=== PATIENT | male | born 1985 | race Caucasian/White ===

== ENCOUNTER 2025-04-21 16:43 | Emergency (ER) | payer OTHER, SELFPAY ==
[2025-04-21 17:02] VITALS: BP 140/80; BP 143/83; PULSE 112; RESP 16; TEMP 37.1; O2SAT 95; O2SAT 96; BMI 33.2
--- NOTE | 2025-04-21 17:10 | PC.NURSE ---
Patient presents from home via EMS with SI with a plan to overdose on his medication. Anniversary of mom's (2019). Patient started with VH 4 days ago and AH 2 days ago. PMH: ADD/ADHD, cluster B personality disorder, MDD, anxiety and PTSD. Patient states went to [facility] to admit self and they informed him that would have a bed for him tomorrow. Alert and oriented, cooperative with care. Lungs clear bilat. Respirations even and non-labored. Abdomen soft, non-tender with positive bowel sounds. Positive pedal pulses with no edema. Pending care team eval.
--- NOTE | 2025-04-21 17:37 | ED_ITS ---
HPI - Psych General Chief Complaint: Psychiatric Symptoms Stated Complaint: SI w/ plan, auditory hallucinations Time Seen by Provider: 04/21/25 16:47 Source: patient and EMS Mode of arrival: EMS Limitations: no limitations History of Present Illness ED Provider: Dr. Niesha Ortiz HPI Narrative: Patient comes to the emergency room via ambulance complaining of suicidal ideation, plan to overdose, auditory hallucinations. Patient states that earlier today he went in to [facility], tried to checked himself in. They told him that they had no beds today but tomorrow they will have a bed available for him. In the meantime, they called EMS to bring him to the emergency room. Patient denies HI. Patient states that today is the anniversary of his mother's which is a trigger for him. Patient states that he did not hurt himself in any way before coming to the emergency room. Related Data Home Medications ?Medication ?Instructions ?Recorded ?Confirmed cholecalciferol (vitamin D3) 10 20 mcg PO DAILY 04/21/25 04/21/25 mcg (400 unit) tablet (Vitamin D3) dextroamphetamine-amphetamine ER 1 cap PO DAILY@1300 04/21/25 04/21/25 20 mg 24hr capsule,extend release (Adderall XR) diazepam 10 mg tablet 10 mg PO BID PRN Anxiety 04/21/25 04/21/25 fluticasone propionate 50 50 mcg intranasal DAILY 04/21/25 04/21/25 mcg/actuation nasal spray,suspension lisdexamfetamine 30 mg capsule 30 mg PO DAILY 04/21/25 04/21/25 (Vyvanse) lithium carbonate 300 mg 1,500 mg PO BEDTIME 04/21/25 04/21/25 tablet,extended release loratadine 10 mg tablet 10 mg PO DAILY 04/21/25 04/21/25 melatonin 3 mg tablet 9 mg PO BEDTIME 04/21/25 04/21/25 mirtazapine 30 mg tablet 30 mg PO BEDTIME 04/21/25 04/21/25 olanzapine 20 mg tablet 20 mg PO BEDTIME 04/21/25 04/21/25 olanzapine 5 mg tablet 5 mg PO DAILY 04/21/25 04/21/25 prazosin 1 mg capsule 1 mg PO DAILY 04/21/25 04/21/25 prazosin 2 mg capsule 2 mg PO BEDTIME 04/21/25 04/21/25 Allergies Allergy/AdvReac Type Severity Reaction Status Date / Time Penicillins [PENICILLINS] Allergy Unknown RASH,HIVES Verified 04/21/25 17:04 Review of Systems 2 Review of Systems: Constitutional : No Weight loss, No Fever, No Chills, No Night Sweats, No Fatigue, No Malaise ENT/Mouth : No Hearing loss, No Ear Pain, No Nasal Congestion, No Sinus Pain, No Hoarseness, No sore throat, No Rhinorrhea, No Swallowing Difficulty Eyes: No Eye Pain, No Swelling, No Redness, No Foreign Body, No Discharge, No Vision Changes Cardiovascular : No Chest Pain, No SOB, No Dyspnea on Exertion, No Orthopnea, No Edema, No Palpitations Respiratory : No Cough, No Sputum, No Wheezing, No Smoke Exposure, No Dyspnea Gastrointestinal : No Nausea, No Vomiting, No Diarrhea, No Constipation, No abdominal Pain, No Hematochezia, No Melena Genitourinary : no irregular bleeding, No Dysuria, No Urinary Frequency, No Hematuria, No Urinary Incontinence, No Urgency, No Flank Pain, No Urinary Flow Changes, No Hesitancy Musculoskeletal : No joint pain, No Myalgias, No Joint Swelling Skin : No Skin Lesions, No rash Neuro : No Weakness, No Numbness, No Paresthesias, No Loss of Consciousness, No Dizziness, No Headache Psych : Complaining of anxiety, suicidal ideation, auditory and visual hallucinations, triggered by his mother's anniversary Heme/Lymph: No Bruising, No Bleeding,No Lymphadenopathy Endocrine : No Polyuria, No Polydipsia, No Temperature Intolerance PMFSH Social History Social History Alcohol intake: former Smoked in Last 30 Days: No Use of substances other than those prescribed or required for medical reasons: No Advance Directives: No Advance Directives Information Provided: No Physical Exam 2 Vital Signs: Vital Signs: Last Vital Signs Temp 98.8 F 04/21/25 17:02 Pulse 98 04/21/25 22:39 Resp 16 04/21/25 22:39 BP 122/71 04/21/25 22:39 Pulse Ox 96 04/21/25 17:02 O2 Del Method Room Air 04/21/25 17:02 BMI result Body Mass Index 33.2 Const: Other: Appearance: Alert. Oriented X3. No acute distress. Eyes: Pupils equal, round and reactive to light. ENT: Pharynx normal. Neck: Normal inspection. Neck supple. No lymph nodes noted. No crepitus CVS: Normal heart rate and rhythm. Pulses normal. Normal S1 and S2 Respiratory: No respiratory distress. Breath sounds normal. No Wheezing. No rales Abdomen: Soft and nontender. No rigidity. No distention. Skin: Skin warm and dry. Normal skin color. Normal skin turgor. Extremities: No lower extremity edema. No Lacerations. No Rash Neuro: Oriented X 3. No motor deficit. No sensory deficit. Moving all extremities. No slurred speech. CN 2 through 12 grossly intact Psych: calm, cooperative, normal affect, coherent, normal speech Course Course Course Narrative: all of patient's labs pending patient is on a Section 12 care team consult pending according to the patient, he arranged at [facility] to get a bed tomorrow morning Reevaluation(s) Reevaluation #1: Time: 06:40 Date: 04/22/25 Provider: Ammon Dietz MD Patient in physician observation for psychiatric evaluation.? No acute events reported overnight. No current complaints. VS stable.? Patient is in bed search status. Will continue to monitor. My independent interpretation patient's laboratory evaluation is as follows: CBC with no significant abnormalities. CMP was normal. Urinalysis was normal. Drug screen urine positive for amphetamines and benzodiazepines. Ethanol was below detectable limits. Time: 08:00 Date: 04/22/25 Provider: Ammon Dietz MD Physician observation ended at 08:00. I did speak to the care team counselor and obtained the following information. The patient is not actively suicidal or homicidal. The patient states that he has a bed at [facility] and he is going to walk to [facility] for evaluation by their intake team. The patien was given verbal and printed discharge with printed. Medications Administered Generic Name Dose Route Start Last Admin Trade Name Freq PRN Reason Stop Dose Admin [place] Carbonate 1,500 mg 04/21/25 22:30 04/21/25 22:36 [place] Carbonate Er 300 Mg Tablet.Er PO 1,500 mg BEDTIME EFREM Administration Melatonin 9 mg 04/21/25 22:30 04/21/25 22:36 Melatonin 3 Mg Tablet PO 9 mg BEDTIME EFREM Administration Mirtazapine 30 mg 04/21/25 22:30 04/21/25 22:36 Mirtazapine 30 Mg Tablet PO 30 mg BEDTIME EFREM Administration Olanzapine 20 mg 04/21/25 22:30 04/21/25 22:36 Olanzapine 10 Mg Tablet PO 20 mg BEDTIME EFREM Administration Prazosin HCl 2 mg 04/21/25 22:30 04/21/25 22:36 Prazosin Hcl 1 Mg Capsule PO 2 mg BEDTIME EFREM Administration Protocol Discontinued Medications Generic Name Dose Route Start Last Admin Trade Name Sita PRN Reason Stop Dose Admin Lorazepam 2 mg 04/21/25 17:46 04/21/25 17:58 Lorazepam 1 Mg Tablet PO 04/21/25 17:47 2 mg ONCE ONE Administration Medical Decision Making Medical Decision Making [facility] Narrative: my interpretation of labs: Patient's white blood cell count 10.9, no source of infection. abnormality in patient's chemistry, urinalysis negative for UTI, urine toxicology positive f or amphetamines and benzodiazepine. The care team evaluated the patient. Patient was recently 30 days and [facility], then in respite, discharged today. Patient is homeless, now presents to the ED stating that he wants to go back to [facility]. Patient states that he was told by [facility] that there is a bed available for him tomorrow in the morning. The care team called [facility], this is not accurate. There is no bed available for the patient. However, the care team evaluated the patient, they believe that the patient is malingering because he is homeless. patient denied SI to the care team. Plan: Discharged 07:00, 04/22/2025 Differential Diagnosis Differential Diagnoses: The differential diagnosis associated with the presentation includes ( polysubstance abuse, bipolar disorder, schizophrenia) Admission/Observation Consideration of admission/observation: Escalation of care including admission/observation considered ( patient is under a section 12 waiting to be seen by the care team, patient may be transferred to [facility] tomorrow) Lab Data [facility] Lab Attestation statement: I reviewed the patient's lab results. 04/21/25 18:07 04/21/25 18:07 Labs: Lab Results 04/21/25 Range/Units 18:07 WBC 10.9 H (4.8-10.8) X10*3/uL RBC 4.31 L (4.60-5.80) X10*6/uL Hgb 13.5 L (14.0-18.0) g/dl Hct 40.7 L (42.0-52.0) % MCV 94.4 (80.0-98.0) fL MCH 31.3 (27.0-33.0) pg MCHC 33.2 (31.0-36.0) g/dl RDW 13.5 (11.0-16.0) % Plt Count 259 (160-400) X10*3/uL MPV 10.4 (9.4-12.4) fL Immature Gran % (Auto) 0.4 (0.0-0.4) % Neut % (Auto) 70.5 (45-73) % Lymph % (Auto) 15.2 L (20-40) % [place] % (Auto) 10.0 (2-11) % Eos % (Auto) 3.4 (0-4) % Baso % (Auto) 0.5 (0-2) % Lymph # (Auto) 1.7 (1.2-4.9) X10*3/uL [place] # (Auto) 1.1 (0.1-1.2) X10*3/uL Eos # (Auto) 0.4 (0.0-0.4) X10*3/uL Baso # (Auto) 0.1 (0.0-0.2) X10*3/uL Abs Immat Gran (auto) 0.04 H (0.00-0.03) X10*3/uL Absolute Neuts (auto) 7.7 (2.0-8.3) x10*3/uL Absolute Nucleated RBC 0.000 (0.0-0.012) X10*3/uL Nucleated RBC % (auto) 0.0 (0.0-0.2) /100WBC Sodium 140 (135-145) mmol/L Potassium 4.0 (3.3-5.1) mmol/L Chloride 107 (96-108) mmol/L Carbon Dioxide 26 (22-29) mmol/L Anion Gap 11 L (12-20) BUN 15 (9-16) mg/dL Creatinine 0.85 (0.5-1.4) mg/dL Estim Creat Clear Calc 153.1 Estimated GFR > 60 Random Glucose 98 (60-115) mg/dL Calcium 9.2 (8.4-10.2) mg/dL Total Bilirubin 0.2 (0.0-1.0) mg/dL AST 24 (5-37) U/L ALT 33 (0-40) U/L Alkaline Phosphatase 64 (39-117) U/L Total Protein 6.7 (6.5-8.0) g/dL Albumin 4.2 (3.5-5.0) g/dL Urine Color Yellow Urine Appearance Clear Urine pH 5.5 (5.0-9.0) Ur Specific [place] 1.020 (1.005-1.025) Urine Protein Negative (Neg-Trace) mg/dL Urine Glucose (UA) Negative (Negative) mg/dL Urine Ketones Negative (Negative) mg/dL Urine Blood Negative (Negative) Urine Nitrite Negative (Negative) Ur Leukocyte Esterase Negative (Negative) Urine Opiates Screen Not Detected (Not Detect) Ur Buprenorphine Scrn Not Detected (Not Detect) ng/mL Ur Oxycodone Screen Not Detected (Not Detect) ng/mL Urine Methadone Screen Not Detected (Not Detect) ng/mL Urine Fentanyl Screen Not Detected (Not Detect) Ur Barbiturates Screen Not Detected (Not Detect) Ur Phencyclidine Scrn Not Detected (Not Detect) Ur Amphetamines Screen POSITIVE H (Not Detect) U Benzodiazepines Scrn POSITIVE H (Not Detect) Urine Cocaine Screen Not Detected (Not Detect) U Marijuana (THC) Screen Not Detected (Not Detect) Ethyl Alcohol < 10 mg/dL Critical Care Time Critical Care Time Critical Care Time: Yes Total Critical Care Time: 35 Attestation: I have personally provided critical care time. Time includes review of lab data, radiology results, discussion with consultants, and monitoring for potential decompensation. Intervention performed as documented. Discharge Plan Discharge Clinical Impression: Auditory hallucination, Suicidal ideation Patient Disposition: Home, Self-Care Additional Instructions: Please follow the care team recommendations Continue taking medications as prescribed by your provider You were seen in our Emergency Department today for treatment of a behavioral health issue. It is important after your visit that you follow up with either your behavioral health provider or a primary care doctor within 7 days.? If you have trouble finding a therapist you can reach out to [address] [phone] The National Suicide and Crisis Lifeline can be reached 7 days a week 24 hours a day.? Call 988 to speak with someone.? Return for any worsening symptoms or concerns such as thoughts of self harm or harm to others. Please call 911 if you feel your mental health is worsening.? Prescriptions: No Action prazosin 1 mg capsule 1 mg PO DAILY olanzapine 5 mg tablet 5 mg PO DAILY lithium carbonate 300 mg tablet extended release 1,500 mg PO BEDTIME melatonin 3 mg tablet 9 mg PO BEDTIME dextroamphetamine-amphetamine [Adderall XR] 20 mg capsule,extended release 24hr 1 cap PO DAILY@1300 mirtazapine 30 mg tablet 30 mg PO BEDTIME diazepam 10 mg tablet 10 mg PO BID PRN (Reason: Anxiety) fluticasone propionate 50 mcg/actuation spray,suspension 50 mcg intranasal DAILY cholecalciferol (vitamin D3) [Vitamin D3] 10 mcg (400 unit) tablet 20 mcg PO DAILY loratadine 10 mg tablet 10 mg PO DAILY prazosin 2 mg capsule 2 mg PO BEDTIME olanzapine 20 mg Tablet 20 mg PO BEDTIME lisdexamfetamine [Vyvanse] 30 mg capsule 30 mg PO DAILY Interventions: [place]-Suicide Risk Severity Scale Last Done: 04/21/25 17:05 Print Language: Macedonian
[2025-04-21] MEDS: LORazepam 1 MG TABLET 2 MG PO (17:58)
[2025-04-21 18:12] LABS: MANUAL DIFF FLAG NO
[2025-04-21 18:17] LABS: Basophils Absolute Auto 0.1 X10*3/uL (0.0-0.2); Basophils Percent Auto 0.5 % (0-2); Eosinophils Absolute Auto 0.4 X10*3/uL (0.0-0.4); Eosinophils Percent Auto 3.4 % (0-4); Hematocrit 40.7 % (42.0-52.0); Hemoglobin 13.5 g/dl (14.0-18.0); Imm Gran Abs Auto 0.04 X10*3/uL (0.00-0.03); Imm Gran Pct Auto 0.4 % (0.0-0.4); Lymphocytes Absolute Auto 1.7 X10*3/uL (1.2-4.9); Lymphocytes Percent Auto 15.2 % (20-40); Mean Corpuscular HGB Conc 33.2 g/dl (31.0-36.0); Mean Corpuscular Hemoglobin 31.3 pg (27.0-33.0); Mean Corpuscular Volume 94.4 fL (80.0-98.0); Mean Platelet Volume 10.4 fL (9.4-12.4); Monocytes Absolute Auto 1.1 X10*3/uL (0.1-1.2); Neutrophils Absolute Auto 7.7 x10*3/uL (2.0-8.3); Neutrophils Percent Auto 70.5 % (45-73); Platelet Count 259 X10*3/uL (160-400); Red Blood Count 4.31 X10*6/uL (4.60-5.80); Red Cell Distribution Width 13.5 % (11.0-16.0); White Blood Count 10.9 X10*3/uL (4.8-10.8)
[2025-04-21 18:20] LABS: Appearance Urine Clear; Color Urine Yellow; Glucose Urine UA Negative (Negative); Leukocyte Esterase Urine Negative (Negative); Nitrite Urine Negative (Negative); PH 5.5 (5.0-9.0); Urine Blood Negative (Negative); Urine Ketones Negative (Negative); Urine Protein Negative (Neg-Trace)
[2025-04-21 18:27] LABS: Alanine Aminotransferase 33 U/L (0-40); Albumin Level 4.2 g/dL (3.5-5.0); Alkaline Phosphatase 64 U/L (39-117); Anion Gap 11 (12-20); Aspartate Amino Transferase 24 U/L (5-37); Bilirubin Total 0.2 mg/dL (0.0-1.0); Blood Urea Nitrogen 15 mg/dL (9-16); Calcium 9.2 mg/dL (8.4-10.2); Carbon Dioxide 26 mmol/L (22-29); Chloride 107 mmol/L (96-108); Creatinine Clr Calc Pharmacy 153.1; Estimated Glomerular Filt Rate > 60; Ethanol < 10 mg/dL; Glucose Random 98 mg/dL (60-115); Sodium 140 mmol/L (135-145); Total Protein 6.7 g/dL (6.5-8.0)
[2025-04-21 18:28] LABS: Amphetamine Screen Urine POSITIVE (Not Detect); Barbiturates, Urine Not Detected (Not Detect); Benzodiazepines Screen Urine POSITIVE (Not Detect); Buprenorphine Scr Not Detected (Not Detect); Cannabinoid Screen Urine Not Detected (Not Detect); Cocaine Screen Urine Not Detected (Not Detect); Fentanyl, urine Not Detected (Not Detect); Methadone Screen, Urine Not Detected (Not Detect); Opiate Screen Urine Not Detected (Not Detect); Oxycodone Screen Urine Not Detected (Not Detect); Phencyclidine Screen Urine Not Detected (Not Detect)
--- OUTSIDE RECORDS SUMMARY | 2025-04-21 19:37 | XMS_ITS | Clinical Summary ---
Author Organization [facility] Address [address] [place] [address] Care Team Providers Care Multi Disciplined Language Analyst Name Role Phone Eloina Palma MD Primary Care Provider [phone] Allergies Active Allergy Reactions Criticality Noted Date Comments Hydromorphone Nausea And Vomiting 10/12/2017 Meloxicam Hives 10/12/2017 Penicillin G Hives 10/12/2017 Medications Medication Sig Dispensed Refills Start Date End Date Status cyclobenzaprine (FLEXERIL) 10 MG tablet 0 10/09/2017 Active AFLURIA PRESERVATIVE FREE 0.5 ML injection inject 0.5 milliliter intramuscularly 0 08/07/2017 Active etodolac (LODINE) 400 MG tablet Take 1 tablet (400 mg total) by mouth 2 (two) times a day. 60 tablet 0 12/25/2017 Active ondansetron (ZOFRAN) 4 MG tablet Take 1 tablet (4 mg total) by mouth every 6 (six) hours as needed for nausea. 20 tablet 0 03/01/2018 Active oxyCODONE-acetamin ophen (PERCOCET) 5-325 MG per tablet Take 1 tablet by mouth every 4(four) to 6(six) hours as needed for pain. (Q4-6hrs PRN) 20 tablet 0 03/01/2018 Active Active Problems Problem Noted Date Diagnosed Date Patellofemoral pain syndrome of left knee 2017 Chondromalacia, patella, left 12/25/2017 Family History Medical History Relation Name Comments Cancer Mother Relation Name Status Comments Mother Social History Tobacco Use Types Packs/Day Years Used Date Smoking Tobacco: Some Days Smokeless Tobacco: Never Alcohol Use Standard Drinks/Week Comments Yes 0 (1 standard drink = 0.6 oz pur e alcohol) occasionally Sex and Gender Information Value Date Recorded Sex Assigned at Not on file Gender Identity Not on file Sexual Orientation Not on file Last Filed Vital Signs Vital Sign Reading Time Taken Comments Blood Pressure 126/82 03/13/2018 10:10 AM EDT Pulse 82 03/13/2018 10:10 AM EDT Temperature 37 ??C (98.6 ??F) 03/13/2018 9:57 AM EDT Respiratory Rate 16 03/13/2018 10:10 AM EDT Oxygen Saturation 96% 03/13/2018 10:10 AM EDT Inhaled Oxygen Concentration - - Weight 108.9 kg (240 lb) 03/12/2018 9:05 AM EDT Height 182.9 cm (6') 03/12/2018 9:05 AM EDT Body Mass Index 32.55 03/12/2018 9:05 AM EDT Plan of Treatment Health Maintenance Due Date Last Done Comments Hepatitis B Vaccines (1 of 3 - 3-dose series) 1987 Hepatitis C Screening 1987 COVID-19 Vaccine (#1) 06/04/1988 Pneumococcal Vaccine (1 of 2 - PCV) 1993 Depression Screening 1999 Preventative Health Evaluation 2005 DTap / Tdap / Td (1 - Tdap) 2006 Influenza Vaccine (Season Ended) 2025 RSV Ped < 20 months Aged Out No longe r eligible based on patient's age to complete this topic Care Teams Multi Disciplined Language Analyst Relationship Specialty Start Date End Date Eloina Palma MD [address] [place] [id number] PCP - General Internal Medicine 03/05/18
[2025-04-21 22:36] VITALS: BP 122/78
[2025-04-21] MEDS: OLANZapine 10 MG TABLET 20 MG PO (22:36)
[2025-04-21] MEDS: Melatonin 3 MG TABLET 9 MG PO (22:36)
[2025-04-21] MEDS: Lithium Carbonate ER 300 MG TABLET.ER 1500 MG PO (22:36)
[2025-04-21] MEDS: Prazosin HCL 1 MG CAPSULE 2 MG PO (22:36)
[2025-04-21] MEDS: Mirtazapine 30 MG TABLET PO (22:36)
[2025-04-21 22:39] VITALS: BP 122/71; PULSE 98; RESP 16
[2025-04-22 08:49] VITALS: BP 131/79; PULSE 98; RESP 16; O2SAT 100
[2025-04-22 09:18] VITALS: BP 131/79; PULSE 98; RESP 16; TEMP -17.7; TEMP 0; O2SAT 100
== END 2025-04-22 09:18 | disposition home or self-care (01) ==
PROVIDERS: Emergency Provider Emergency Medicine
DX: R44.0 Auditory hallucinations (principal); R45.851 Suicidal ideations; F15.90 Other stimulant use, unspecified, uncomplicated; Z79.899 Other long term (current) drug therapy; Z51.81 Encounter for therapeutic drug level monitoring
CPT/HCPCS: 36415; 80053; 80307; 81003; 85025; 99285; S9485

== ENCOUNTER 2025-07-07 17:19 | Emergency (ER) | payer MEDICAID, SELFPAY ==
--- NOTE | 2025-07-07 | ECG_ITS ---
Test Reason : TACHYCARDIA Blood Pressure : */* mmHG Vent. Rate : 102 BPM Atrial Rate : 102 BPM P-R Int : 152 ms QRS Dur : 112 ms QT Int : 362 ms P-R-T Axes : 35 25 21 degrees QTcB Int : 471 ms Sinus tachycardia Otherwise normal ECG No previous ECGs available Referred By: Generic ED Physician Electronically Signed By: FATUMA AGUILAR
[2025-07-07 17:31] VITALS: BP 131/78; PULSE 112; RESP 18; O2SAT 94; BMI 34.6
--- NOTE | 2025-07-07 18:10 | ED.PSYCH ---
HPI - Psych General Chief Complaint: Psychiatric Symptoms Stated Complaint: crisis Time Seen by Provider: 07/07/25 17:58 History of Present Illness HPI Narrative: Patient is 39 years old presents today with a history of ADHD. History of depression. History of anxiety. Having thoughts of suicidal ideation patient had thoughts about taking extra pills. Did not actually take any pills. Patient lost everything in life including his house his kids his parents felt that there is nothing to live for he does not have a gun in his house. He has been seen multiple times in the past for suicidal ideation patient is from home. Did not use any recreational drugs alcohol. Related Data Home Medications ?Medication ?Instructions ?Recorded ?Confirmed cholecalciferol (vitamin D3) 10 20 mcg PO DAILY 04/21/25 04/21/25 mcg (400 unit) tablet (Vitamin D3) dextroamphetamine-amphetamine ER 1 cap PO DAILY@1300 04/21/25 04/21/25 20 mg 24hr capsule,extend release (Adderall XR) diazepam 10 mg tablet 10 mg PO BID PRN Anxiety 04/21/25 04/21/25 fluticasone propionate 50 50 mcg intranasal DAILY 04/21/25 04/21/25 mcg/actuation nasal spray,suspension lisdexamfetamine 30 mg capsule 30 mg PO DAILY 04/21/25 04/21/25 (Vyvanse) lithium carbonate 300 mg 1,500 mg PO BEDTIME 04/21/25 04/21/25 tablet,extended release loratadine 10 mg tablet 10 mg PO DAILY 04/21/25 04/21/25 melatonin 3 mg tablet 9 mg PO BEDTIME 04/21/25 04/21/25 mirtazapine 30 mg tablet 30 mg PO BEDTIME 04/21/25 04/21/25 olanzapine 20 mg tablet 20 mg PO BEDTIME 04/21/25 04/21/25 olanzapine 5 mg tablet 5 mg PO DAILY 04/21/25 04/21/25 prazosin 1 mg capsule 1 mg PO DAILY 04/21/25 04/21/25 prazosin 2 mg capsule 2 mg PO BEDTIME 04/21/25 04/21/25 Allergies Allergy/AdvReac Type Severity Reaction Status Date / Time Penicillins (PENICILLINS) Allergy Unknown RASH,HIVES Verified 07/07/25 17:34 Review of Systems Review of Systems: Positive SI Yes all other systems are reviewed and are negative PMFSH Past Medical History Attestation statement: The following information was validated with the patient. Social History Social History Alcohol intake: former Advance Directives: No Advance Directives Information Provided: No Physical Exam Exam: Exam: Appearance: Alert. Oriented X3. No acute distress. Eyes: Pupils equal, round and reactive to light. ENT: Pharynx normal. Neck: Normal inspection. Neck supple. No lymph nodes noted. No crepitus CVS: Normal heart rate and rhythm. Pulses normal. Normal S1 and S2 Respiratory: No respiratory distress. Breath sounds normal. No Wheezing. No rales Abdomen: Soft and nontender. No rigidity. No distention. good BS x4 Skin: Skin warm and dry. Normal skin color. Normal skin turgor. Extremities: No lower extremity edema. Neurovascular intact to all extremities. No Lacerations. No Rash Neuro: Oriented X 3. No motor deficit. No sensory deficit. Moving all extermities. No slurred speech. Cranial nerves grossly intact Vital Signs: Vital Signs: Last Vital Signs Pulse 112 H 07/07/25 17:31 Resp 18 07/07/25 17:31 BP 131/78 07/07/25 17:31 Pulse Ox 94 07/07/25 17:31 O2 Del Method Room Air 07/07/25 17:31 BMI result Body Mass Index 34.6 Medical Decision Making Medical Decision Making [facility] Narrative: Well-appearing no acute distress. Positive suicidal thoughts. Did not actually carry a any plans. Will get labs. Will get crisis team to evaluate patient. Currently in stable condition. Patient is seen by care team. Radiological Technician patient can be discharged home. Currently he is not suicidal. Patient was just seen by Psychiatry previously. Was just discharged prior. Has a history of doing the same thing multiple times in the past. Patient to be discharged home. Currently in stable condition. Differential Diagnosis Differential Diagnoses: The differential diagnosis associated with the presentation includes Depression anxiety Admission/Observation Consideration of admission/observation: Escalation of care including admission/observation considered Consult Healthcare Provider Management of the patient was discussed with: Technology Consultant (Care team) Lab Data [facility] Lab Attestation statement: I reviewed the patient's lab results. 07/07/25 18:25 07/07/25 18:25 Labs: Lab Results 07/07/25 07/07/25 07/07/25 Range/Units 18:13 18:25 18:26 WBC 15.2 H (4.8-10.8) X10*3/uL RBC 4.94 (4.60-5.80) X10*6/uL Hgb 15.4 (14.0-18.0) g/dl Hct 45.2 (42.0-52.0) % MCV 91.5 (80.0-98.0) fL MCH 31.2 (27.0-33.0) pg MCHC 34.1 (31.0-36.0) g/dl RDW 12.5 (11.0-16.0) % Plt Count 272 (160-400) X10*3/uL MPV 10.6 (9.4-12.4) fL Immature Gran % (Auto) 0.3 (0.0-0.4) % Neut % (Auto) 79.8 H (45-73) % Lymph % (Auto) 11.7 L (20-40) % [place] % (Auto) 6.5 (2-11) % Eos % (Auto) 1.2 (0-4) % Baso % (Auto) 0.5 (0-2) % Lymph # (Auto) 1.8 (1.2-4.9) X10*3/uL [place] # (Auto) 1.0 (0.1-1.2) X10*3/uL Eos # (Auto) 0.2 (0.0-0.4) X10*3/uL Baso # (Auto) 0.1 (0.0-0.2) X10*3/uL Abs Immat Gran (auto) 0.05 H (0.00-0.03) X10*3/uL Absolute Neuts (auto) 12.1 H (2.0-8.3) x10*3/uL Absolute Nucleated RBC 0.000 (0.0-0.012) X10*3/uL Nucleated RBC % (auto) 0.0 (0.0-0.2) /100WBC Sodium 139 (135-145) mmol/L Potassium 3.6 (3.3-5.1) mmol/L Chloride 107 (96-108) mmol/L Carbon Dioxide 23 (22-29) mmol/L Anion Gap 13 (12-20) BUN 16 (9-16) mg/dL Creatinine 1.07 (0.5-1.4) mg/dL Estim Creat Clear Calc 124.1 Estimated GFR > 60 Random Glucose 157 H (60-115) mg/dL Calcium 9.3 (8.4-10.2) mg/dL Total Bilirubin 0.3 (0.0-1.0) mg/dL AST 22 (5-37) U/L ALT 24 (0-40) U/L Alkaline Phosphatase 55 (39-117) U/L Total Protein 7.6 (6.5-8.0) g/dL Albumin 4.7 (3.5-5.0) g/dL Urine Color Yellow Urine Appearance Clear Urine pH 5.5 (5.0-9.0) Ur Specific [place] 1.025 (1.005-1.025) Urine Protein Negative (Neg-Trace) mg/dL Urine Glucose (UA) Negative (Negative) mg/dL Urine Ketones Negative (Negative) mg/dL Urine Blood Negative (Negative) Urine Nitrite Negative (Negative) Ur Leukocyte Esterase Negative (Negative) Salicylates < 5.0 L (15-30) mg/dL Urine Opiates Screen Not Detected (Not Detect) Ur Buprenorphine Scrn Not Detected (Not Detect) ng/mL Ur Oxycodone Screen Not Detected (Not Detect) ng/mL Urine Methadone Screen Not Detected (Not Detect) ng/mL Urine Fentanyl Screen Not Detected (Not Detect) Acetaminophen < 3 (<30) mcg/mL Ur Barbiturates Screen Not Detected (Not Detect) Ur Phencyclidine Scrn Not Detected (Not Detect) Ur Amphetamines Screen POSITIVE H (Not Detect) U Benzodiazepines Scrn POSITIVE H (Not Detect) Urine Cocaine Screen Not Detected (Not Detect) U Marijuana (THC) Screen Not Detected (Not Detect) Ethyl Alcohol < 10 mg/dL Chronic Conditions History of ADHD Social Determinants Patient?s care significantly limited by Social Determinants of Health including: Inadequate housing, Low income, Alcoholism and drug addiction in family, Problems related to primary support group, Unemployment and Other Social Determinant of Health Discharge Plan Discharge Clinical Impression: Depression Patient Disposition: Home, Self-Care Instructions: Depression (ED) Prescriptions: No Action prazosin 1 mg capsule 1 mg PO DAILY olanzapine 5 mg tablet 5 mg PO DAILY lithium carbonate 300 mg tablet extended release 1,500 mg PO BEDTIME melatonin 3 mg tablet 9 mg PO BEDTIME dextroamphetamine-amphetamine [Adderall XR] 20 mg capsule,extended release 24hr 1 cap PO DAILY@1300 mirtazapine 30 mg tablet 30 mg PO BEDTIME diazepam 10 mg tablet 10 mg PO BID PRN (Reason: Anxiety) fluticasone propionate 50 mcg/actuation spray,suspension 50 mcg intranasal DAILY cholecalciferol (vitamin D3) [Vitamin D3] 10 mcg (400 unit) tablet 20 mcg PO DAILY loratadine 10 mg tablet 10 mg PO DAILY prazosin 2 mg capsule 2 mg PO BEDTIME olanzapine 20 mg Tablet 20 mg PO BEDTIME lisdexamfetamine [Vyvanse] 30 mg capsule 30 mg PO DAILY Referrals: Physician,None [Primary Care Provider, Medical] Referral Note: Please follow-up as per care team Print Language: Trinidadian
--- NOTE | 2025-07-07 18:26 | PC.NURSE ---
money and wallet in security safe per laurie tech
[2025-07-07 18:27] LABS: Appearance Urine Clear; Glucose Urine UA Negative (Negative); PH 5.5 (5.0-9.0); Specific Gravity - Urine 1.025 (1.005-1.025)
[2025-07-07 18:32] LABS: MANUAL DIFF FLAG NO
[2025-07-07 18:36] LABS: Hematocrit 45.2 % (42.0-52.0); Hemoglobin 15.4 g/dl (14.0-18.0); Imm Gran Abs Auto 0.05 X10*3/uL (0.00-0.03); Imm Gran Pct Auto 0.3 % (0.0-0.4); Lymphocytes Absolute Auto 1.8 X10*3/uL (1.2-4.9); Mean Corpuscular HGB Conc 34.1 g/dl (31.0-36.0); Mean Corpuscular Hemoglobin 31.2 pg (27.0-33.0); Mean Corpuscular Volume 91.5 fL (80.0-98.0); NRBC Abs Auto 0.000 X10*3/uL (0.0-0.012); NRBC Pct Auto 0.0 /100WBC (0.0-0.2); Platelet Count 272 X10*3/uL (160-400); Red Blood Count 4.94 X10*6/uL (4.60-5.80); White Blood Count 15.2 X10*3/uL (4.8-10.8)
[2025-07-07 18:39] LABS: Cannabinoid Screen Urine Not Detected (Not Detect)
--- OUTSIDE RECORDS SUMMARY | 2025-07-07 18:47 | XMS_ITS | Encounter Summary ---
Author Organization [facility] Address [address] [place] [address] Care Team Providers Care Metalizing Machine Operator Automatic Name Role Phone Eloina Palma MD Primary Care Provider [phone] Encounter Details Date Type Department Care Team (Late st Contact Info) Description 02/28/2025 Lab Requisition [facility] - Main Lab [address] [facility] [place] [address] Grace Mckeon Social History Tobacco Use Types Packs/Day Years Used Date Smoking Tobacco: Some Days Smokeless Tobacco: Never Alcohol Use Standard Drinks/Week Comments Yes 0 (1 standard drink = 0.6 oz pur e alcohol) Sex and Gender Information Value Date Recorded Sex Assigned at Not on file Legal Sex Male 7:27 AM EST Gender Identity Not on file Sexual Orientation Not on file documented as of this encounter Plan of Treatment Not on file documented as of this encounter Visit Diagnoses Not on filedocumented in this encounter Care Teams Metalizing Machine Operator Automatic Relationship Specialty Start Date End Date Eloina Palma MD [address] [place] [address] PCP - General Internal Medicine 03/05/18 documented as of this encounter
--- OUTSIDE RECORDS SUMMARY | 2025-07-07 18:47 | XMS_ITS | Encounter Summary ---
Author Organization [facility] Address [address] [place] [address] Care Team Providers Care Thermostatic Controls Supervisor Name Role Phone Eloina Palma MD Primary Care Provider [phone] Encounter Details Date Type Department Care Team (Late st Contact Info) Description 02/28/2025 Lab Requisition [facility] - Main Lab [address] [place] [address] Grace Mckeon Other salvage determiner (current) drug therapy Social History Tobacco Use Types Packs/Day Years [...] on file documented as of this encounter Procedures Procedure Name Priority Date/Time Associated Diagnosis Comments CBC WITH AUTO DIFFERENTIAL Routine 02/28/2025 7:00 AM EDT Other custodial (current) drug therapy CBC AND DIFFERENTIAL Routine 02/28/2025 7:00 AM EDT Other custodial (current) drug therapy COMPREHENSIVE METABOLIC PANEL Routine 02/28/2025 7:00 AM EDT Other salvage determiner (current) drug therapy documented in this encounter Results * (ABNORMAL) CBC auto differential (02/28/2025 7:00 AM EDT) WBC 15.8(H) 4.8 - 10.8 K/[facility] LAB HEMETOLOGY METHOD 02/28/2025 10:32 AM EDT [facility] LAB RBC 4.50 4.50 - 5.50 M/mcL LAB HEMETOLOGY METHOD 02/28/2025 10:32 AM [facility] LAB Hemoglobin 14.1 13.5 - 17.5 g/dL LAB HEMETOLOGY METHOD 02/28/2025 10:32 AM [facility] LAB Hematocrit 43.0 42.0 - 54.0 % LAB HEMETOLOGY METHOD 02/28/2025 10:32 AM [facility] LAB MCV 96.6 79.0 - 98.0 FL LAB HEMETOLOGY METHOD 02/28/2025 10:32 AM [facility] LAB MCH 31.7 27.0 - 32.0 pcg LAB HEMETOLOGY METHOD 02/28/2025 10:32 AM [facility] LAB MCHC 32.8 32.0 - 37.0 g/dL LAB HEMETOLOGY METHOD 02/28/2025 10:32 AM [facility] LAB RDW 12.8 11.0 - 15.0 % LAB HEMETOLOGY METHOD 02/28/2025 10:32 AM [facility] LAB Platelets 293 130 - 400 K/mcL LAB HEMETOLOGY METHOD 02/28/2025 10:32 AM [facility] LAB MPV 11.4(H) 7.0 - 11.0 FL LAB HEMETOLOGY METHOD 02/28/2025 10:32 AM [facility] LAB NRBC 0.0 <1.0 % LAB HEMETOLOGY METHOD 02/28/2025 10:32 AM [facility] LAB NRBC Absolute 0.00 <0.10 K/mcL LAB HEMETOLOGY METHOD 02/28/2025 10:32 AM [facility] LAB Neutrophils Relative 77.4 % LAB HEMETOLOGY METHOD 02/28/2025 10:32 AM [facility] LAB Lymphocytes Relative 10.0 % LAB HEMETOLOGY METHOD 02/28/2025 10:32 AM [facility] LAB Monocytes Relative 9.1 % LAB HEMETOLOGY METHOD 02/28/2025 10:32 AM [facility] LAB Eosinophils Relative 2.5 % LAB HEMETOLOGY METHOD 02/28/2025 10:32 AM [facility] LAB Basophils Relative 0.3 % LAB HEMETOLOGY METHOD 02/28/2025 10:32 AM [facility] LAB Immature Granulocytes Relative 0.7 % LAB HEMETOLOGY METHOD 02/28/2025 10:32 AM [facility] LAB Neutrophils Absolute 12.21(H) 1.50 - 7.00 K/mcL LAB HEMETOLOGY METHOD 02/28/2025 10:32 AM [facility] LAB Lymphocytes Absolute 1.57 1.00 - 5.00 K/mcL LAB HEMETOLOGY METHOD 02/28/2025 10:32 AM [facility] LAB Monocytes Absolute 1.43(H) 0.20 - 1.00 K/mcL LAB HEMETOLOGY METHOD 02/28/2025 10:32 AM [facility] LAB Eosinophils Absolute 0.39 0.00 - 0.50 K/mcL LAB HEMETOLOGY METHOD 02/28/2025 10:32 AM [facility] LAB Basophils Absolute 0.04 0.00 - 0.20 K/mcL LAB HEMETOLOGY METHOD 02/28/2025 10:32 AM [facility] LAB Immature Granulocytes Absolute 0.11(H) 0.00 - 0.03 K/mcL LAB HEMETOLOGY METHOD 02/28/2025 10:32 AM [facility] LAB Blood Venous blood specimen / Unknown Venipuncture / Unknown 02/28/2025 7:00 AM EDT 02/28/2025 10:19 AM EDT [facility] LAB BLOOD ORDERABLES Final Resul t [facility] LAB [address] [place] [address], * (ABNORMAL) Comprehensive metabolic panel (02/28/2025 7:00 AM EDT) Sodium 137 133 - 145 mmol/L LAB CHEMISTRY METHOD 02/28/2025 11:00 AM [facility] LAB Potassium 4.2 3.5 - 5.5 mmol/L LAB CHEMISTRY METHOD 02/28/2025 11:00 AM [facility] LAB Chloride 105 96 - 110 mmol/L LAB CHEMISTRY METHOD 02/28/2025 11:00 AM [facility] LAB CO2 28 21 - 32 mmol/L LAB CHEMISTRY METHOD 02/28/2025 11:00 AM [facility] LAB Anion Gap 4 3 - 11 LAB CHEMISTRY METHOD 02/28/2025 11:00 AM [facility] LAB Glucose 64(L) 70 - 100 mg/dL LAB CHEMISTRY METHOD 02/28/2025 11:00 AM [facility] LAB BUN 14 5 - 25 mg/dL LAB CHEMISTRY METHOD 02/28/2025 11:00 AM [facility] LAB Creatinine 0.77 0.70 - 1.30 mg/dL LAB CHEMISTRY METHOD 02/28/2025 11:00 AM [facility] LAB eGFR 118 >=60 mL/min/1. 73m2 LAB CHEMISTRY METHOD 02/28/2025 11:00 AM [facility] LAB Comment:Calculation based on the Chronic Kidney Disease Epidemiology Collaboration (CKD-EPI) equation refit without adjustment for race. BUN/Creatinine Ratio 18.2 LAB CHEMISTRY METHOD 02/28/2025 11:00 AM [facility] LAB Calcium 8.7 8.5 - 10.5 mg/dL LAB CHEMISTRY METHOD 02/28/2025 11:00 AM [facility] LAB AST (SGOT) 23 10 - 42 unit/L LAB CHEMISTRY METHOD 02/28/2025 11:00 AM EDT [facility] LAB ALT (SGPT) 47 10 - 60 unit/L LAB CHEMISTRY METHOD 02/28/2025 11:00 AM EDT [facility] LAB Alkaline Phosphatase 53 42 - 121 unit/L LAB CHEMISTRY METHOD 02/28/2025 11:00 AM EDT [facility] LAB Total Protein 6.7 6.0 - 8.0 g/dL LAB CHEMISTRY METHOD 02/28/2025 11:00 AM EDT [facility] LAB Albumin 3.6 3.2 - 5.0 g/dL LAB CHEMISTRY METHOD 02/28/2025 11:00 AM [facility] LAB Total Bilirubin 0.4 0.0 - 1.4 mg/dL LAB CHEMISTRY METHOD 02/28/2025 11:00 AM T [facility] LAB Blood Venous blood specimen / Unknown Venipuncture / Unknown 02/28/2025 7:00 AM EDT 02/28/2025 10:19 AM EDT [facility] LAB BLOOD ORDERABLES Final Resul t [facility] LAB [address] [place] [address], documented in this encounter Visit Diagnoses Diagnosis Other custodial (current) drug therapy documented in this encounter Care Teams Thermostatic Controls Supervisor Relationship Specialty Start Date End Date Eloina Palma MD [address] [place] [address] PCP - General Internal Medicine 03/05/18 documented as of this encounter
--- OUTSIDE RECORDS SUMMARY | 2025-07-07 18:47 | XMS_ITS | Clinical Summary ---
Author Organization [facility] Address [address] [place] [address] Care Team Providers Care Transferrer Name Role Phone Eloina Palma MD Primary Care Provider [phone] Allergies Active Allergy Reactions Criticality Noted Date [...] 82 03/13/2018 10:10 AM EDT Temperature 37 C (98.6 F) 03/13/2018 9:57 AM EDT Respiratory Rate 16 [...] Td (1 - Tdap) 2006 Influenza Vaccine (#1) 2025 RSV Ped < 20 months Aged Out No longe r eligible based on patient's age to complete this topic Care Teams Transferrer Relationship Specialty Start Date End Date Eloina Palma MD [address] [place] [id number] PCP - General Internal Medicine 03/05/18
--- OUTSIDE RECORDS SUMMARY | 2025-07-07 18:47 | XMS_ITS | Clinical Summary ---
Author Organization [address] Address [address] [place] [address] Phone Care Team Providers Care Coat Presser Name Role Phone Eloina Palma MD Primary Care Provider [phone] Surgical History Surgery Date Site/Laterality Comments KNEE SURGERY PROCEDURE:KNEE SURGERY FOOT SURGERY PROCEDURE:FOOT SURGERY KNEE ARTHROSCOPY 03/13/2018 Left PROCEDURE:KNEE ARTHROSCOPY;COMMENT:Procedure: ARTHROSCOPY KNEE, DEBRIDEMENT OF PATELLA; Surgeon: Gómez Canseco MD; Location: [facility]; [facility]; Laterality: Left; Medical History Medical History Date Comments Kidney stone DX:Kidney stone Family History Medical History Relation Name Comments [...] on file Sexual Orientation Not on file Obstetrics History Plan of Treatment Health Maintenance Due Date Last Done Comments DTaP,Tdap,and Td Vaccines (1 - Tdap) 2006 Hepatitis B Vaccines (1 of 3 - 19+ 3-dose series) 2006 Pneumococcal Vaccine: Pediat rics (0 to 5 Years) and At-Risk Patients (6 to 49 Years) (1 of 2 - PCV) 2006 COVID-19 Vaccine (2023-2 5 season) 2024 Depression Screening 11/12/2024 Cholesterol Screening (Lipid Panel) 02/28/2025 HIV Screening 02/28/2025 Hepatitis C Screening 02/28/2025 Social Influencers of Health Screening 02/28/2025 Influenza Vaccine (#1) 2025 HIB Vaccines Aged Out No longer eligi ble based on patient's age to complete this topic HPV Vaccines Aged Out No longer eligi ble based on patient's age to complete this topic Hepatitis A Vaccines Aged Out No long er eligible based on patient's age to complete this topic IPV Vaccines Aged Out No longer eligi ble based on patient's age to complete this topic MMR Vaccines Aged Out No longer eligi ble based on patient's age to complete this topic Meningococcal ACWY Vaccine Aged Out N o longer eligible based on patient's age to complete this topic Meningococcal B Vaccine Aged Out No l onger eligible based on patient's age to complete this topic RSV Immunization Patients Un kalyn 20 months Aged Out No longer eligible b ased on patient's age to complete this topic Varicella Vaccines Aged Out No longer eligible based on patient's age to complete this topic Care Teams Coat Presser Relationship Specialty Start Date End Date Eloina Palma MD [address] [place] [address] PCP - General Internal Medicine 03/05/18
[2025-07-07 18:52] LABS: Alanine Aminotransferase 24 U/L (0-40); Albumin Level 4.7 g/dL (3.5-5.0); Alkaline Phosphatase 55 U/L (39-117); Anion Gap 13 (12-20); Aspartate Amino Transferase 22 U/L (5-37); Blood Urea Nitrogen 16 mg/dL (9-16); Calcium 9.3 mg/dL (8.4-10.2); Carbon Dioxide 23 mmol/L (22-29); Chloride 107 mmol/L (96-108); Creatinine Clr Calc Pharmacy 124.1; Estimated Glomerular Filt Rate > 60; Potassium 3.6 mmol/L (3.3-5.1); Sodium 139 mmol/L (135-145); Total Protein 7.6 g/dL (6.5-8.0)
[2025-07-07 18:55] LABS: Acetaminophen LAB < 3 mcg/mL (<30); Salicylate < 5.0 mg/dL (15-30)
[2025-07-07 21:27] VITALS: BP 131/78; PULSE 112; RESP 18; TEMP 36.7; O2SAT 94
== END 2025-07-07 21:28 | disposition home or self-care (01) ==
PROVIDERS: Emergency Provider Emergency Medicine Emergency Medical Services
DX: F90.9 Attention-deficit hyperactivity disorder, unspecified type (principal); F32.A Depression, unspecified; F41.9 Anxiety disorder, unspecified; R45.851 Suicidal ideations
CPT/HCPCS: 80053; 80143; 80179; 80307; 81003; 85025; 93005; 99284; S9485

== ENCOUNTER → 2025-07-07 17:47 | Outpatient (BNV) | payer MEDICAID, SELFPAY | PROVIDERS: Emergency Provider Emergency Medicine Emergency Medical Services; Visit Provider Internal Medicine | DX: R00.0 Tachycardia, unspecified (principal) | CPT/HCPCS: 93010 ==